=== PATIENT | male | born 1940 | race Caucasian/White ===

== ENCOUNTER 2019-01-26 07:26 | Day surgery (SDC) | payer OTHER, MEDICARE ==
[2019-01-23 13:37] VITALS: BMI 26.9
[2019-01-26] MEDS ORDERED: LIDOCAINE HCL/PF 2% SDV 5ML VIAL ONE (09:03)
[2019-01-26 10:16] VITALS: TEMP 97.6
[2019-01-26 10:17] VITALS: BP 122/72; PULSE 62
--- NOTE | 2019-01-27 16:13 | PATH ---
Surgical Pathology Report Patient Name: DAYAN CLEMENTE [facility]. Rec. #: [id number] /Age/Gender: 1940 (Age: 78) / M Account: [id number] Location: [facility] Taken: 01/26/2019 Received: 01/26/2019 Reported: 01/27/2019 Physicians: Boo Cook M.D. Specimen(s) Received POLYP RIGHT COLON X2 Clinical History Screening, history of polyps Postoperative diagnosis: Diverticulosis, colon polyps Final Diagnosis RIGHT COLON POLYP X 2, BIOPSY: POLYPOID COLONIC MUCOSAL WITH FOCAL SURFACE HYPERPLASTIC CHANGE, INCREASED FOAMY HISTIOCYTES AND REACTIVE LYMPHOID AGGREGATE IN THE LAMINA PROPRIA. Electronically Signed Cas Rain M.D. Gross Description Received in formalin, labeled "biopsy polyp right colon x2" are 4 iniguez, irregular portions of soft tissue ranging from 0.2-0.6 cm. in greatest dimension. The specimens are submitted in toto in one cassette. 01/26/201901/26/2019
== END 2019-01-26 10:10 | disposition home or self-care (01) ==
LOC: FASU-ENDO 07:26
PROVIDERS: ATTEND Internal Medicine Gastroenterology
PROC: 0DBK8ZX Excision of Ascending Colon, Via Natural or Artificial Opening Endoscopic, Diagnostic (ICD-10-PCS; 2019-01-26)
PROC: 0DBK8ZX Excision of Ascending Colon, Via Natural or Artificial Opening Endoscopic, Diagnostic (ICD-10-PCS; principal; 2019-01-26 09:03)
DX: Z86.010 Personal history of colon polyps (principal); D12.2 Benign neoplasm of ascending colon; K57.30 Diverticulosis of large intestine without perforation or abscess without bleeding
CPT/HCPCS: 88305-TC